=== PATIENT | female | born 1945 | race Caucasian/White ===

== ENCOUNTER 2018-11-11 09:02 | Day surgery (SDC) | payer MEDICARE, OTHER ==
[~2018-11-11 09:02] MED LIST: Acetaminophen/HYDROcodone 325-5 MG Tab PO PRN; Bupivacaine 25%/EPINEPHrine/PF 30 ML Vial INJECT ONE; Lactated Ringers 1,000 ML IV SCH; ceFAZolin 2 GM in Premix Bag 1 BAG IV ONE
[2018-11-11] MEDS ORDERED: Bupivacaine 25%/EPINEPHrine/PF 30 ML ONE (10:35)
--- NOTE | 2018-11-11 11:09 | PCM.PREANE ---
Preanesthetic Assessment - Anesthesia/Transfusion/Family Hx Anesthesia History: Prior Anesthesia Without Reaction Family History of Anesthesia Reaction: No Transfusion History: No Prior Transfusion(s) Intubation History: Unknown - Review of Systems General: No Symptoms Pulmonary: No Symptoms Cardiovascular: No Symptoms Gastrointestinal: No Symptoms Neurological: No Symptoms Other: Reports: None - Physical Assessment Height: 1.73 m Weight: 99.79 kg ASA Class: 3 Mental Status: Alert & Oriented x3 Airway Class: Mallampati = 2 Dentition: Reports: Dentures (upper ), Partial (fixed lower) Thyro-Mental Finger Breadths: 3 Mouth Opening Finger Breadths: 3 ROM/Head Extension: Limited/Partial Lungs: Clear to Auscultation, Normal Respiratory Effort Cardiovascular: Regular Rate, Regular Rhythm - Allergies Allergies/Adverse Reactions: Allergies Allergy/AdvReac Type Severity Reaction Status Date / Time No Known Allergies Allergy Verified 11/06/18 14:21 - Blood Blood Available: No - Anesthesia Plan Pre-Op Medication Ordered: None - Acknowledgements Anesthesia Type Planned: MAC Pt an Appropriate Candidate for the Planned Anesthesia: Yes Alternatives and Risks of Anesthesia Discussed w Pt/Guardian: Yes Pt/Guardian Understands and Agrees with Anesthesia Plan: Yes PreAnesthesia Questionnaire HEENT History: Reports: Other (See Below) Other HEENT History: uses reading glasses, has upper and lower dentures Cardiovascular History: Reports: Heart Murmur, High Cholesterol, Hypertension Other Cardiovascular History: states heart murmur "comes and goes" Musculoskeletal History: Reports: Arthritis Endocrine/Metabolic History: Reports: Obesity/BMI 30+, Other (See Below) Other Endocrine/Metabolic History: states is borderline diabetic- no medications , diet controlled Oncologic (Cancer) History: Reports: Other (See Below) Other Oncologic History: "some kind" of skin cancer removed from face - Infectious Disease History Infectious Disease History: Reports: Chicken Pox, Measles - Past Surgical History GI Surgical History: Reports: Colonoscopy Female Surgical History: Reports: Breast Implant, Hysterectomy, Other (See Below) Other Female Surgeries/Procedures: removal of breast implants Dermatological Surgical History: Reports: Skin Biopsy - SUBSTANCE USE Smoking Status *Q: Never Smoker Recreational Drug Use History: No - HOME MEDS Home Medications: Home Meds Aspirin [Halfprin] 81 mg PO BRK 01/09/16 [History] Krill/Om-3/DHA/EPA/Phospho/Ast [Krill Oil 500 mg Softgel] 1 each PO DAILY [History] Multivitamin [Daily Multiple Vitamin] 1 tab PO DAILY 01/09/16 [History] Pravastatin [Pravachol] 20 mg PO BEDTIME 01/09/16 [History] Zolpidem [Ambien] 5 mg PO BEDTIME 01/09/16 [History] Ascorbic Acid [Vitamin C] 1,000 mg PO DAILY 11/06/18 [History] Cyanocobalamin (Vitamin B12) [Vitamin B12] 1,000 mcg PO DAILY 11/06/18 [History] Losartan Potassium 100 mg PO DAILY 11/06/18 [History] Ubidecarenone [Co Q-10] 100 mg PO DAILY 11/06/18 [History] amLODIPine Besylate [Norvasc] 2.5 mg PO BEDTIME 11/06/18 [History] - CURRENT (IN HOUSE) MEDS Current Meds: Current Medications Hydrocodone Bitart/Acetaminophen ([place] 325-5 Mg) 1 tab PO Q4H PRN PRN Reason: Pain Lactated Ringer's (Ringers, Lactated) 1,000 mls @ 125 mls/hr IV ASDIRECTED SHAHRAM Discontinued Medications Bupivacaine HCl/Epinephrine Bitart (Sensorc Mpf 0.25%-Epi [id number]) 10 ml INJECT ONETIME ONE Stop: 11/11/18 08:01 Cefazolin Sodium/Dextrose 2 gm (/ Premix) 50 mls @ 100 mls/hr IV ONETIME ONE Stop: 11/11/18 08:29 Bupivacaine HCl/Epinephrine Bitart (Sensorc Mpf 0.25%-Epi [id number]) Confirm Administered Dose 30 mls @ as directed .ROUTE .STK-MED ONE Stop: 11/11/18 10:36
[2018-11-11] MEDS ORDERED: Lidocaine 2% 5 ML SDV ONE (11:10)
[2018-11-11] MEDS ORDERED: Midazolam 1 MG/ML 2 ML SDV ONE (11:10)
[2018-11-11] MEDS ORDERED: Propofol 200 MG/20 ML SDV ONE (11:10)
[2018-11-11] MEDS ORDERED: fentaNYL 100 MCG/2 ML SDV ONE ×2 (11:10→13:26)
[2018-11-11] MEDS ORDERED: Sodium Chloride 0.9% 0 ML ONE (13:11)
[2018-11-11] MEDS ORDERED: ceFAZolin 1 GM Vial ONE ×2 (13:11→14:37)
--- NOTE | 2018-11-11 14:05 | PCM.POSTAN ---
POST ANESTHESIA ASSESSMENT - MENTAL STATUS Mental Status: Alert, Oriented - RESPIRATORY Respiratory Status: Respiratory Rate WNL, Airway Patent, O2 Saturation Stable - CARDIOVASCULAR CV Status: Pulse Rate WNL, Blood Pressure Stable - GASTROINTESTINAL GI Status: No Symptoms - PAIN Pain Score: 0 - POST OP HYDRATION Hydration Status: Adequate & Stable - OBSERVATIONS Free Text/Narrative:: No anesthesia problems,patient skipped recovery room phase of postoperative care.
--- NOTE | 2018-11-11 14:06 | PCM48HPAN ---
Post Anesthesia Note - EVALUATION WITHIN 48HRS OF ANESTHETIC Vital Signs in Normal Range: Yes Patient Participated in Evaluation: Yes Respiratory Function Stable: Yes Airway Patent: Yes Cardiovascular Function Stable: Yes Hydration Status Stable: Yes Pain Control Satisfactory: Yes Nausea and Vomiting Control Satisfactory: Yes Mental Status Recovered: Yes Resp Rate: 15 - COMMENTS/OBSERVATIONS Free Text/Narrative:: No anesthesia problems
[2018-11-11 14:23] VITALS: BP 133/60
[2018-11-11] MEDS ORDERED: Sodium Chloride 0.9% 20 ML ONE (14:37)
[2018-11-11] MEDS ORDERED: Glycopyrrolate 0.2 MG/ML SDV ONE (14:38)
--- NOTE | 2018-11-11 17:06 | PCM.OPNOTE ---
- General Post-Op/Procedure Note Date of Surgery/Procedure: 11/11/18 Operative Procedure(s): excision left thumb dip joint ganglion Pre Op Diagnosis: left thumb ganglion at the interphalangeal joint Post-Op Diagnosis: Same Anesthesia Technique: Local, MAC Primary Surgeon: Tracey Brannon Ceo And Founder: Ana Hsu Complications: None Condition: Good
== END 2018-11-11 14:08 | disposition home or self-care (01) ==
LOC: MW.SDS 09:02
PROVIDERS: ATTEND Plastic Surgery
DX: M67.442 Ganglion, left hand (principal); I10 Essential (primary) hypertension; E11.9 Type 2 diabetes mellitus without complications; E78.00 Pure hypercholesterolemia, unspecified; M18.9 Osteoarthritis of first carpometacarpal joint, unspecified; Z79.82 Long term (current) use of aspirin; Z79.899 Other long term (current) drug therapy
CPT/HCPCS: J0690; J2001; J2250; J2704; J3010; J3490; J7120